=== PATIENT | male | born 1985 | race Two or more races ===

== ENCOUNTER 2019-03-03 22:34 | Emergency (ER) | payer OTHER ==
[2019-03-03 22:38] VITALS: BP 153/93
[2019-03-03] MEDS ORDERED: AMOXICILLIN/CLAVULANATE POT 875/125 MG TAB PO ONE (22:48)
--- NOTE | 2019-03-03 22:50 | EDPHY ---
General Time Seen by Provider: 03/03/19 22:40 Narrative: CLINICAL IMPRESSION: Dog bite ASSESSMENT/PLAN: 33-year-old male presents to the emergency department after his puppy bit him on his left thigh this evening. Patient reports tetanus is up-to-date. He cleaned the wound at home. No difficulty ambulating and no significant pain. No clinical signs of compartment syndrome. No broken teeth on the dog and low clinical suspicion for retained foreign body. He was given a dose of Augmentin in the ED and a prescription to fill tomorrow. PD notified to report to the patient's house. Signs and symptoms of infection reviewed, warning signs return to ED sooner alignment discharge. DIFFERENTIAL DIAGNOSIS: includes but not limited to laceration of tendon or vascular structure, underlying fracture, laceration with retained FB ED PROCEDURES: Laceration - puncture laceration to left thigh. Surrounded by contusion. No palpable defect. No reported broken dog teeth or concern for foreign body. Wound care: Clean and dry x 24 hours, gently clean with soap and water, cover with topical antibiotic ointment/bandage. CHIEF COMPLAINT: Puncture wound from dog bite HPI: 33-year-old male presents to the emergency department after he was bitten by his puppy this evening on his left thigh. Patient reports he was playing with a dog when the dog bit him. His tetanus is up-to-date. No significant pain, difficulty walking, or significant swelling. He washed the wound thoroughly at home. PD has not been notified. PAST MEDICAL HISTORY: TBI Pertinent Past Surgical History: TBI with craniectomy Social History: Otherwise healthy REVIEW OF SYSTEMS: All other systems negative Constitutional: No fever, no chills Musculoskeletal: No deformity, no joint pain Skin: Very small puncture wound x2 to left thigh surrounded by contusion and mild swelling. Neurological: No sensory loss or weakness, 2 point discrimination intact. PHYSICAL EXAM: General Appearance: Alert, oriented, appropriate for age, cooperative, NAD, well hydrated, non-toxic appearing, VSS, no hypoxia. Neurological: Alert and oriented x 3 Skin: Small sub mm puncture wound to left thigh surrounded by contusion and swelling. No crepitus, palpable foreign body, induration or fluctuance Musculoskeletal: Full range of motion of the leg. No clinical signs of compartment syndrome MEDICAL DECISION MAKING: Patient was seen independently. Secondary supervising physician at time of evaluation was Dr. Martínez . Diagnosis: Dog bite. New, requires workup Summary: See assessment and plan for summary of ED visit Patient Progress improved. - History Smoking Status: Never smoked - Objective Vital Signs: Initial Vital Signs Temperature (C) 36.6 C 03/03/19 22:36 Heart Rate 67 03/03/19 22:36 Respiratory Rate 16 03/03/19 22:36 Blood Pressure 153/93 H 03/03/19 22:36 O2 Sat (%) 95 03/03/19 22:36 O2 Delivery Mode Room Air Allergies/Adverse Reactions: No Known Allergies Allergy (Unverified 03/03/19 22:36) Home Medications: Medication Instructions Recorded Amoxicillin/Clavulanate Pot 875 mg PO BID #14 tab 03/03/19 [Augmentin 875 mg tab] Medications Given: Discontinued Medications Amoxicillin/Clavulanate Potassium (Augmentin 875mg) 875 mg PO EDNOW ONE PRN Reason: Protocol Stop: 03/03/19 22:49 Last Admin: 03/03/19 22:55 Dose: 875 mg Departure - Departure Disposition: Home, Routine, Self-Care Clinical Impression: Dog bite Qualifiers: Encounter type: initial encounter Qualified Code(s): W54.0XXA - Bitten by dog, initial encounter Condition: Good Instructions: Animal Bite (ED) Additional Instructions: DISCHARGE INSTRUCTIONS FROM YOUR DOCTOR Thank you for visiting our emergency department today. You were treated by a physician acute care nursing assistant today and your case was reviewed with our ED Attending physician. Please keep in mind that discharge from the emergency department does not mean that there is nothing wrong - it simply means that we have not identified an emergency condition that requires further evaluation or treatment in the hospital. You should always plan to follow up with primary care for re- evaluation of your condition in the next 2-3 days. If you have been referred to a specialist, please call as soon as possible (today or tomorrow) to schedule your follow up appointment at the appropriate time. ANTIBIOTICS WERE INITIATED IN THE EMERGENCY DEPARTMENT AND A PRESCRIPTION WAS GIVEN. PLEASE TAKE DIRECTED. PLEASE KEEP WOUND VERY CLEAN WITH SOAP AND WATER. FOLLOW UP WITH A PRIMARY CARE DOCTOR. RETURN TO THE EMERGENCY DEPARTMENT FOR INCREASED PAIN, SWELLING, DISCHARGE, FEVER, CHILLS, NUMBNESS TO THE LEG, OR ANY OTHER CONCERNS. People present with illnesses and injuries in different ways, and it is always possible that we have missed something. You may always return for re-evaluation if symptoms worsen or if they are not improving or if you develop new/different symptoms. Again, thank you for choosing our emergency department. We hope that you feel better. Referrals: Jack Rausch [Primary Care Provider] - 2-3 days, call for appt. Prescriptions: Amoxicillin/Clavulanate Pot [Augmentin 875 mg tab] 875 mg PO BID #14 tab
== END 2019-03-03 23:02 | disposition home or self-care (01) ==
DX: S71.152A Open bite, left thigh, initial encounter (principal); W54.0XXA Bitten by dog, initial encounter; Y93.K9 Activity, other involving animal care